=== PATIENT | female | born 1980 | race Caucasian/White ===

== ENCOUNTER 2021-09-21 17:22 | Emergency (ER) | payer BC, SELFPAY ==
--- NOTE | ~2021-09-21 | XR_ITS ---
EXAM: XR knee LT min 4V HISTORY: FELL FORWARD 09/21/21. PAIN SWELLING SINCE. COMPARISON: None available FINDINGS: Normal mineralization. No fracture or dislocation. No lytic or blastic lesion. Moderate vo lume joint fluid is present. IMPRESSION: Moderate left knee joint effusion. No acute osseous finding detected. Reviewed, dictated and finalized at location K.
--- NOTE | 2021-09-21 17:32 | ED.LOWEXIN ---
HPI - Extremity Injury (Lower) General Chief Complaint: Extremity Injury, Lower Stated Complaint: Fall Injury/Left Knee Injury Time Seen by Provider: 09/21/21 18:01 Source: patient and RN notes reviewed Mode of arrival: ambulatory Limitations: no limitations History of Present Illness HPI Narrative: 41-year-old female presents with concern for left knee injury. Reports today she fell while walking up some stairs and hit the knee on the stair and hyperflexed the knee. She states that she has had swelling, anterior pain. She denies open skin MD complaint: knee injury Related Data Home Medications Medication Instructions Recorded Confirmed alprazolam 0.5 mg PO TID PRN 09/21/21 09/21/21 atenolol 50 mg PO DAILY 09/21/21 09/21/21 fenofibrate 160 mg PO DAILY 09/21/21 09/21/21 hydrochlorothiazide 25 mg PO DAILY 09/21/21 09/21/21 Allergies Allergy/AdvReac Type Severity Reaction Status Date / Time citalopram [From Celexa] AdvReac Other Verified 09/21/21 18:08 sumatriptan [From Imitrex] AdvReac Other Verified 09/21/21 18:08 migraine meds AdvReac Other Uncoded 09/21/21 18:09 Review of Systems Review of Systems: CONSTITUTIONAL: Denies malaise, chills, sweats, or fever. SKIN: Denies rash or itching, open skin, laceration, abrasion, redness, warmth MUSCULOSKELETAL: Reports left knee pain and swelling NEUROLOGIC: Denies numbness, weakness All systems reviewed & are unremarkable except as noted in HPI and below PMFSH Comments At time of signature, agree with nursing past medical, surgical, social and family history. There is no relevant family history pertinent to the presenting complaint Exam Narrative: GENERAL: Well-appearing, well-nourished, and in no acute distress. HEAD: Normocephalic, atraumatic. EYES: PERRLA, conjunctivae clear NECK: Supple. CHEST: Speaks in full sentences. No respiratory distress. HEART: Regular rate and rhythm. Normal and equal peripheral pulses. EXTREMITIES: Left leg has normal sensation, limited range of motion. Mild anterior edema. 5Normal sensation with sensitivity to light touch and pain. No point tenderness. No open wounds, no skin tenting, no devitalized tissue or atrophy, no trophic changes, no obvious deformity, alignment normal, nearby joints and structures intact. Distal pulses palpable and equal bilaterally, skin warm, dry, pink. Capillary refill less than 3 seconds. SKIN: Warm, dry, no rash. NEURO: Alert and oriented x3. PSYCH: Normal mood and affect Course Course Emergency Course: Patient is aware of diagnosis, understands and agrees to treatment plan. Anticipatory guidance given. Patient agrees to follow-up as directed and is aware of reasons to seek care at the emergency department. Portions of this record may have been created with voice recognition software Level of Care: Express Care Visit Vital Signs Vital signs: Reviewed. MDM - Extremity Injury (Lower) MDM Narrative Medical decision making narrative: Patients injury and pain is consistent with musculoskeletal etiology. No signs of neurological or vascular compromise on exam. Compartments and tissues are soft without signs of compartment syndrome. Pain is felt appropriate for further evaluation on an outpatient basis. Imaging Data My impression: Images reviewed, interpreted by radiologist, agree, see report. Radiologist's impression: EXAM: XR knee LT min 4V HISTORY: FELL FORWARD 09/21/21. PAIN SWELLING SINCE. COMPARISON: None available FINDINGS: Normal mineralization. No fracture or dislocation. No lytic or blastic lesion. Moderate volume joint fluid is present. IMPRESSION: Moderate left knee joint effusion. No acute osseous finding detected. Critical Care Time Critical Care Time Critical Care Time: No Discharge Plan Discharge Clinical Impression: Effusion of knee joint, left Patient Disposition: Home, Self-Care Condition: Stable Instructions: Knee Sprain (ED) Additional Instructions: Avoid ac
[2021-09-21 17:40] VITALS: BP 130/74; PULSE 62; RESP 20; TEMP 36.6; O2SAT 98
== END 2021-09-21 18:40 | disposition home or self-care (01) ==
PROVIDERS: Emergency Provider Nurse Practitioner; PCP Physician Assistant
DX: M25.462 Effusion, left knee (principal); E78.00 Pure hypercholesterolemia, unspecified; I10 Essential (primary) hypertension; F41.9 Anxiety disorder, unspecified
CPT/HCPCS: 73564; 99213; G0463

== ENCOUNTER 2023-01-30 10:04 | Emergency (ER) | payer OTHER, SELFPAY ==
--- NOTE | ~2023-01-30 | XR_ITS ---
EXAMINATION: XR foot RT min 3V DATE: 01/30/2023 10:31 INDICATION: Right foot pain TECHNIQUE: Dorsoplantar, lateral, and 2 oblique views of the right foot were obtained. COMPARISON: None. FINDINGS: There is a questionable nondisplaced fracture at the base of the fifth proximal phalanx. Th e joint spaces are normal. There is lateral soft tissue swelling of the foot. IMPRESSION: 1. Possible nondisplaced fracture of the fifth proximal phalanx. Clinically correlate for tenderness at this site. Reviewed, dictated and finalized at location A. IMPRESSION: 1. Possible nondisplaced fracture of the fifth proximal phalanx. Clinically cor relate for tenderness at this site.
[2023-01-30 10:19] VITALS: BP 140/85; PULSE 60; RESP 16; TEMP 36.1; O2SAT 100
--- NOTE | 2023-01-30 10:48 | ED.GENADULT ---
HPI - General Adult General Chief complaint: Extremity Injury, Lower Stated complaint: foot pain Source: patient Mode of arrival: ambulatory Limitations: no limitations History of Present Illness HPI narrative: Patient presents for evaluation of bilateral foot pain, right greater than left for the last 3 weeks. She indicates she was stepping down out of her kitchen and strained both feet in the process. Since that time she has had persistent pain in both feet. She rates her pain as 6/10 in severity. Pain is primarily located in lateral aspect of both feet, just below the ankles. No radicular component. No paresthesias. Denies any pain in any digit of either foot. She has been ambulating but states she is limping. She has been using tylenol and ibuprofen for her symptoms. Related Data Home Medications Medication Instructions Recorded Confirmed alprazolam 0.25 mg tablet 0.5 mg PO TID PRN Anxiety 09/21/21 09/21/21 atenolol 50 mg tablet 50 mg PO DAILY 09/21/21 09/21/21 fenofibrate 160 mg tablet 160 mg PO DAILY 09/21/21 09/21/21 hydrochlorothiazide 25 mg tablet 25 mg PO DAILY 09/21/21 09/21/21 Allergies Allergy/AdvReac Type Severity Reaction Status Date / Time citalopram [From Celexa] AdvReac Other Verified 09/21/21 18:08 sumatriptan [From Imitrex] AdvReac Other Verified 09/21/21 18:08 migraine meds AdvReac Other Uncoded 09/21/21 18:09 Review of Systems Review of Systems: CONSTITUTIONAL: Denies fever, chills, or sweats. EYES: Denies visual changes, redness, or discharge. ENT: Denies rhinorrhea, congestion, sore throat, or otalgia. CARDIOVASCULAR: Denies chest pain, palpitations, or edema. RESPIRATORY: Denies cough or dyspnea. GASTROINTESTINAL: Denies abdominal pain, nausea, vomiting, or diarrhea. GENITOURINARY: Denies dysuria or hematuria. SKIN: Denies rash or itching. MUSCULOSKELETAL: Reports pain in both feet, right greater than left, located on lateral aspect beneath the ankle. Denies pain in any of the digits of both feet NEUROLOGIC: Denies headache, numbness, dizziness, or weakness. PSYCHIATRIC: Denies anxiety or depression. PMFSH Past Medical History Medical History Depression Headache Hypertension Surgical History Surgical History No pertinent past surgical history Family History Family History (Updated 01/30/23 @ 10:55 by Abdi Jiménez [facility], ) Mother Family history non-contributory Social History Social History Smoking packs per day: 0.5 Smoking cigarettes per day: 10.0 Smoking status: Current every day smoker Alcohol intake: current Alcohol use details: 1--2 times per month Living arrangements: with family Gender identity (if verbalized by the patient): Female Sexual Orientation (if Verbalized by the Patient): Straight or Heterosexual Spiritual care concerns: No Exam Narrative: GENERAL: Well-appearing, well-nourished, and in no acute distress. HEAD: Normocephalic, atraumatic. EYES: PERRLA and EOMI. ENT: Nares clear, no rhinorrhea or epistaxis. Mucous membranes moist. Oropharynx without tonsillar hypertrophy exudate or other lesions. Bilateral TMs pearly rich nonbulging NECK: Supple. No adenopathy or masses. No carotid bruits or JVD CHEST: Clear to auscultation. No respiratory distress. No wheezes rales or rhonchi HEART: Regular rate and rhythm. No murmur heard. Normal peripheral pulses. ABDOMEN: Soft, nontender, nondistended, normal active bowel sounds. EXTREMITIES: Able to wiggle all digits of the right foot. Able to dorsi and plantar flex right foot. There is no tenderness in any digit of the right foot. There is very mild tenderness in the lateral aspect of the proximal right foot just beneath the ankle. There is no crepitus or deformity present. She is able to a wiggle
== END 2023-01-30 10:54 | disposition home or self-care (01) ==
PROVIDERS: Emergency Provider Nurse Practitioner; PCP Physician Assistant
DX: S96.911A Strain of unspecified muscle and tendon at ankle and foot level, right foot, initial encounter (principal); X58.XXXA Exposure to other specified factors, initial encounter; I10 Essential (primary) hypertension; F17.210 Nicotine dependence, cigarettes, uncomplicated
CPT/HCPCS: 73630; 99213; G0463